=== PATIENT | male | born 1945 | race Caucasian/White ===

== ENCOUNTER 2018-11-22 15:34 | Emergency (ER) | payer OTHER, MEDICARE ==
--- NOTE | 2018-11-22 15:51 | EDPHY ---
H & P Stated Complaint: [facility] fall denies LOC/hitting head, R thumb pain c good CMS. Time Seen by Provider: 11/22/18 15:42 HPI/ROS: CHIEF COMPLAINT: Fall HISTORY OF PRESENT ILLNESS: Patient is a 73-year-old man who [place]. He is complaining of primarily pain in the right thumb metacarpal phalangeal joint. No wrist or arm pain. Also he has minor abrasions to his right hand and right gonzales. He did not hit his head. No neck pain. No loss of consciousness. Severity: Moderate Modifying factors: None REVIEW OF SYSTEMS: Constitutional: denies: chills, fever, recent illness, recent injury EENTM: denies: blurred vision, double vision, nose congestion Respiratory: denies: cough, shortness of breath Cardiac: denies: chest pain, irregular heart rate, lightheadedness, palpitations Gastrointestinal/Abdominal: denies: abdominal pain, diarrhea, nausea, vomiting, blood streaked stools Genitourinary: denies: dysuria, frequency, hematuria, pain Musculoskeletal: See HPI Skin: denies: lesions, rash, jaundice, bruising Neurological: denies: headache, numbness, paresthesia, tingling, dizziness, weakness Hematologic/Lymphatic: denies: blood clots, easy bleeding, easy bruising Immunologic/allergic: denies: HIV/AIDS, transplant 10 systems reviewed and negative except as noted EXAM: GENERAL: Well-appearing, well-nourished and in no acute distress. HEAD: Atraumatic, normocephalic. EYES: Pupils equal round and reactive to light, extraocular movements intact, sclera anicteric, conjunctiva are normal. ENT: TMs normal, nares patent, oropharynx clear without exudates. Moist mucous membranes. NECK: Normal range of motion, supple without lymphadenopathy or JVD. LUNGS: Breath sounds clear to auscultation bilaterally and equal. No wheezes rales or rhonchi. HEART: Regular rate and rhythm without murmurs, rubs or gallops. ABDOMEN: Soft, nontender, normoactive bowel sounds. No guarding, no rebound. No masses appreciated. BACK: No CVA tenderness, no spinal tenderness, step-offs or deformities EXTREMITIES: Right thumb with pain at MCP joint. Appreciable lateral laxity compared to the left thumb. Minor abrasions to hand. Abrasion/laceration to right gonzales. Not amenable to suturing. Some tissue missing. NEUROLOGICAL: Cranial nerves II through XII grossly intact. Normal speech, normal gait. 5/5 strength, normal movement in all extremities, normal sensation , normal reflexes PSYCH: Normal mood, normal affect. SKIN: See above Source: Patient - Personal History Current Tetanus/Diphtheria Vaccine: Yes - Medical/Surgical History Hx Asthma: No Hx Chronic Respiratory Disease: No Hx Diabetes: No Hx Cardiac Disease: No Hx Renal Disease: No Hx Cirrhosis: No Hx Alcoholism: No Hx HIV/AIDS: No Hx Splenectomy or Spleen Trauma: No Other PMH: L hip repl, - Family History Significant Family History: No pertinent family hx - Social History Smoking Status: Never smoked Alcohol Use: Sober Drug Use: None Constitutional: Initial Vital Signs Temperature (C) 36.4 C 11/22/18 15:38 Heart Rate 66 11/22/18 15:38 Respiratory Rate 16 11/22/18 15:38 Blood Pressure 156/70 H 11/22/18 15:38 O2 Sat (%) 97 11/22/18 15:38 O2 Delivery Mode Room Air Allergies/Adverse Reactions: No Known Allergies Allergy (Unverified 11/22/18 15:38) Medical Decision Making - Diagnostics Imaging Results: Imaging Impressions Finger X-Ray 11/22/18 15:42 Impression: No acute osseous findings. Imaging: Discussed imaging studies w/ scallop cutter machine Radiologist Procedures: Procedure: Splint placement. A Velcro thumb spica splint was applied. After application of the splint I returned and re-examined the patient. The splint was adequately immobilizing the joint and distal to the splint the patient's circulation and sensation was intact. ED Course/Re-evaluation: Patient is from [place] and states that he will return there to follow up with Hand surgery and possibly get MRI. I will place him in a thumb spica splint for now I suspect that he has a gamekeeper's thumb type injury. He is declining pain medication. His wounds have been cleaned and dressed. 4:50 p.m. we discussed the x-ray results. The patient is reassured. We discussed my suspicions for tendon injury. He will follow up with his primary and possibly hand surgeon in [place]. I will refer him to ours here as well. He declines further workup or testing at this time. We did place Steri- Strips across the abrasion to his gonzales. Differential Diagnosis: Partial list of the Differential diagnosis considered include but were not limited to; fracture, abrasion, laceration, gamekeeper's thumb and although unlikely based on the history and physical exam, I also considered dislocation, vascular injury, nerve injury, head injury, neck injury. I discussed these differential diagnoses and the plan with the patient as well as the usual and expected course. The patient understands that the diagnosis is provisional and that in medicine we are not always correct and that further workup is often warranted. Usual and customary warnings were given. All of the patient's questions were answered. The patient was instructed to return to the emergency department should the symptoms at all worsen or return, otherwise to followup with the physician as we discussed. - Data Points Medications Given: Discontinued Medications Tetracaine/Epinephrine/Lidocaine (Let Gel Topical) 1 ea TP EDNOW ONE Stop: 11/22/18 15:58 Last Admin: 11/22/18 16:14 Dose: 1 ea Departure - Departure Disposition: Home, Routine, Self-Care Clinical Impression: Abrasion, multiple sites Injury of thumb, right Qualifiers: Encounter type: initial encounter Qualified Code(s): S69.91XA - Unspecified injury of right wrist, hand and finger(s), initial encounter Condition: Good Instructions: Skier's Thumb (ED), Finger Sprain (ED), Abrasion (ED) Referrals: Selvin Joseph MD [Medical Doctor] - As per Instructions
[2018-11-22] MEDS ORDERED: LET GEL TOPICAL 1 EA SYR TP ONE (15:57)
[2018-11-22 17:01] VITALS: BP 177/81
== END 2018-11-22 17:00 | disposition home or self-care (01) ==
DX: S81.811A Laceration without foreign body, right lower leg, initial encounter (principal); S60.511A Abrasion of right hand, initial encounter; W01.0XXA Fall on same level from slipping, tripping and stumbling without subsequent striking against object, initial encounter; Y92.828 Other wilderness area as the place of occurrence of the external cause
CPT/HCPCS: 73140; 99283; L3807